=== PATIENT | female | born 1940 | race Caucasian/White ===

== ENCOUNTER → 2017-02-18 | Outpatient (CLI) | payer OTHER ==
--- NOTE | 2017-02-18 14:55 | DIAGNOSTIC IMAGING REPORT ---
CT OF THE CHEST WITHOUT IV CONTRAST CLINICAL HISTORY: Pulmonary nodules. Abnormal CT scan. COMPARISON STUDY: Chest CT February 18, 2016 and December 24, 2016. CT DOSE: 301.51 mGycm TECHNIQUE: Axial images of the chest were obtained without IV contrast. Images were reviewed in the axial, sagittal, and coronal planes. IV contrast was not administered for this examination. FINDINGS: No enlarged axillary, mediastinal or hilar lymph nodes are present. The size of the heart is normal. There is moderate coronary artery calcification. Central airways are patent. There is mild to moderate emphysema. There is no consolidation to suggest pneumonia. A 6 mm left lower lobe nodule shown on image 185 of [address] of February 18, 2016. A 5 mm subpleural linear nodule within the left lower lobe shown on image 190 is also unchanged. A few tiny left upper lobe nodules are unchanged. A 5 mm right lower lobe perifissural nodule shown image 118 is unchanged. There are no new nodules. There is no pneumothorax or pleural effusion. Bony thorax is unremarkable. The left kidney is not visualized. IMPRESSION: 1. No change in several pulmonary nodules since exam of February 18, 2016. These are likely benign. A follow-up chest CT in 6 months is recommended to ensure stability. 2. Mild to moderate emphysema. 3. No thoracic lymphadenopathy. Electronically signed by: Sudhir Wang M.D. 02/18/2017 2:53 PM Dictated Date/Time: 02/18/2017 11:52 AM
== END | disposition home or self-care (01) ==
LOC: C.CTS 10:27
PROVIDERS: ATTEND Internal Medicine Critical Care Medicine
DX: R91.8 Other nonspecific abnormal finding of lung field (principal)

== ENCOUNTER → 2017-02-24 | Outpatient (CLI) | payer OTHER ==
--- NOTE | 2017-02-25 06:06 | PAP/PSG TECHNICIAN REPORT ---
[facility] Slip Presser Polysomnogram Report Study name: None Report date: 02/25/2017 Study date: 02/24/2017 Referring Physician: María Elena Crandall PA-C, PA-C Name: ISHMAEL PAULSON Interpreting Physician: Leandro Dillon M.D. Date of : 1940 Slip Presser: SWAPNA Salas. Sex: Female Age: 77 StudyType: PSG PAP Weight: 151 lbs Height: 77 years, Height 5' 0" BMI: 29.49 Medications: Incruse Ellipta 62.5mcg/inh, Albuterol, Aricept 10mg, Benicar HCT 20-12.5mg, Breo Elliipta 200-25 mcg/inh, Celexa 20mg, Colace 100mg, Macrobid 100mg, Metamucil, ProAir HFA 108mcg/act Patient History Study started on room air with 4cwp cpap in room #7. 77 yr old female here tonight for a new titration study. She had a HST that had a MONROE of 36.3. Her granddaughter dropped her off at the sleep lab and told me that she has dementia. Her ESS= 11/24. Parameters Monitored NPSG: E1-M2, E2-M1, Fp1-M2, Fp2-M1, F3-M2, F4-M2, F4-M1, C3-M2, C4-M2, C4-M1, O1-M2, O2-M2, O2-M1, T3-M2, T4-M1, P3-M2, P4-M1, CHIN1, CHIN2, HR, EKG, Legs, PFLOW, SNOR, FLOW, CFLOW, Tidal Volume, THOR, ABDO, SpO2, PLTH, CPRESS, ETCO2 Wave, ETCO2, pH Sleep Architecture Sleep Stages Time at Lights Off 9:51:50 PM STAGES Time (min.) TST (%) Time at Lights On 5:48:50 AM Wake 354.0 -- Total Recording Time (TRT) 477.00 min. N1 20.0 16 Total Sleep Period (TSP) 341.0 min. N2 67.0 54 Total Sleep Time (TST) 123.0min. N3 27.5 22 Awake Time 354.0 min. REM 8.5 7 Wake after Sleep Onset 218.0 min. Sleep Efficiency (SE) 26 % Sleep Onset Latency (RENA) 136.0 min. Number of Stage 1 Shifts None Awakenings 14 Stage Changes 48 Number of REM periods 1 REM 8.5 7 REM Latency 257.5 min. NREM 114.5 93 Body Position Analysis Supine Right Left Side Prone Vertical Total Sleep Time (min.) 2.2 56.5 66.5 123.00 0.0 0.0 Total Sleep Time (%) 0% 46% 54% 100 0% N/A% Total Sleep Time REM (min.) 0.0 0.0 8.5 None 0.0 0.0 Total Sleep Time NREM (min.) 0.0 56.5 58.0 None 0.0 0.0 Intermittent Wake (min.) 2.2 116.9 234.9 None 0.0 0.0 Total Sleep Period (%) 0% None None None None None Arousals Myoclonus (PLM) * Events Count Index Events Count Index Spontaneous 4 2 Events Awake (PLMW) 521 88.3 Respiratory 4 2.9 Events Asleep w/ Arousal (PLMA) 4 2.0 PLM 4 2 Events Asleep w/o Arousal (PLMS) 25 12.2 Snoring 2 1 Total Asleep 29 14.1 Total 14 7 Total 550 69 Respiratory Analysis * CA OA MA CH H RERA Total Count 0 12 0 0 1 0 13 Index 0.0 5.9 0.0 0 0.5 0 6.3 Mean Duration 0.0 15.8 0.0 0.00 23.9 0.0 16.4 Longest Duration 0.0 22.5 0.0 0.00 0.0 0.0 23.9 Respiratory Event Summary Total Supine ~Supine Right Left Prone REM NREM Apneas Count 12 N/A 12 1 11 N/A 0 12 Index 5.9 N/A 6 1.1 9.9 N/A 0 6 Hypopneas (4% Desat) Count 1 N/A 1 0 1 N/A 0 1 Index 0.5 N/A 0 0.0 0.9 N/A 0.0 0.5 Apneas & All Hypopneas Count 13 N/A 13 1 12 N/A 0 13 Index 6.3 N/A 6 1 11 N/A 0.0 6.8 Respiratory Events (Moisture Meter Reader+All Hyp+RERA) Count 13 N/A 13 1 12 N/A 0 13 Index 6.3 N/A 6 1.1 10.8 N/A 0.0 6.8 Respiratory Related Arousal Count 4 N/A 6 0 6 N/A 0 6 Index 2.9 N/A 3 0 5 N/A 0 3 Snoring Analysis Supine Right Left Prone REM NREM Total Snore duration 1.4 min Snores count N/A 11 38 N/A 1 48 49 Snore mean duration 1.7 Sec Snores index N/A 12 34 N/A 7.1 25.2 23.9 TST with snoring (%) 1.1% Desaturation Event Summary: Minimum %SpO2 Event Count Mean/Min/Max Duration(sec.) Desaturation Index % Time In Bed > 90 32 30.9 / 11.5 / 54.5 5.7 74.4 86 - 90 3 12.0 / 4.8 / 25.0 1.6 25.4 81 - 85 0 N/A 0.0 0.1 76 - 80 0 N/A 0.0 0.0 71 - 75 1 12.3 / 12.3 / 12.3 293.9 0.0 66 - 70 0 N/A 0.0 0.0 61 - 65 0 N/A 0.0 0.0 56 - 60 0 N/A 0.0 0.0 51 - 55 0 N/A 0.0 0.0 < 50 0 N/A 0.0 0.0 Total REM NREM Awake <50% 0.0 min. 0.0 min. 0.0 min. 0.0 min. 51 - 60% 0.0 min. 0.0 min. 0.0 min. 0.0 min. 61 - 70% 0.0 min. 0.0 min. 0.0 min. 0.0 min. 71 - 80% 0.2 min. 0.0 min. 0.0 min. 0.2 min. 81 - 90% 115.1 min. 0.0 min. 18.7 min. 96.4 min. 91 - 100% 335.9 min. 8.5 min. 95.6 min. 231.8 min. Average 92 94 92 91 Minimum SpO2 72 91 89 72 Desaturation Event Index 4.4 14.1 0.5 5.6 # Desat. Events below 89% 6 N/A N/A 6 Time(%) with Saturation below 89% 1.0 0.0 0.0 1.0 Time(min.) with Saturation below 89% 4.6 0.0 0.0 4.6 Time (mins) REM (mins) NREM (mins) % of TST SpO2 Below 90% N/A N/A NN/A 1.2 SpO2 Below 88% 0 0 0 0 Heart Rate Analysis Min (bpm) Max (bpm) Average (bpm) Awake 54 127 68 NREM 54 87 60 REM 55 66 60 Overall 54 87 60 Supplemental O2 Values Minimum O2 level: None Value Start Time End Time Slip Presser Comments Mrs. Paulson slept in the right and left positions. Cardiac arrhythmia noted, see print out. Some leg movements noted. No bruxism noted. CPAP was initiated at +4 CMH2O and up-titrated to a level of +8 CMH2O. As soon as she would fall asleep she would have one apnea after another. A small Simplus full face mask by Onel and a medium Quattro Air full face mask by [employer] were used during titration. In the very short time that she did sleep she awoke once to use the restroom and to get a drink. She stated that she slept worse than when at home because of all the wires. She said she did not mind the mask but did not really like wearing it. The final report will be interpreted and signed by a sleep physician. The completed physician report will then be placed in the patient medical record. Therapy Event: Therapy (cm H20) 4 6 8 Total Time at Pressure (min.) 140.5 7.8 328.7 TST at Pressure (min.) 3.0 6.8 113.2 # Periods 1 1 1 Sleep Onset (min.) 136.0 0.0 0.0 REM Onset (min.) N/A N/A 245.2 Sleep Efficiency % 2 86 34 Wakefulness (%) 97.9 13.3 65.6 Wakefulness (min.) 137.5 1.0 215.5 NREM 1 (%) 2.1 32.0 4.4 NREM 1 (min.) 3.0 2.5 14.5 NREM 2 (%) 0.0 54.7 19.1 NREM 2 (min.) 0.0 4.3 62.7 NREM 3 (%) 0.0 0.0 8.4 NREM 3 (min.) 0.0 0.0 27.5 REM (%) 0.0 0.0 2.6 REM (min.) 0.0 0.0 8.5 # Arousals 3 1 10 Arousal Index 60.0 8.9 5.3 # Snore 1 13 35 Snore Index 20.0 115.2 18.5 AHI 80.0 44.3 2.1 AHI Supine N/A N/A N/A AHI Non-Supine 80.0 44.3 2.1 NREM AHI 80.0 44.3 2.3 REM AHI N/A N/A 0.0 RDI 80.0 44.3 2.1 # Obstructive 4 5 3 # Central Ap 0 0 0 # Mixed 0 0 0 # Hypopneas 0 0 1 RERAS 0 0 0 Total Respiratory Events 4 5 4 Time Below SpO2 89.00% (min.) 0.0 0.0 0.0 Mean NREM SpO2 (%) 92 93 92 Mean REM SpO2 (%) N/A N/A 94 Mean Sleep SpO2 (%) 92 93 92 Min NREM SpO2 (%) 90 91 89 Min REM SpO2 (%) N/A N/A 91 Position Supine (min.) 0.0 0.0 0.0 Position Non-supine (min.) 3.0 6.8 113.2 LM Index Sleep 40.0 17.7 13.2 LM Index NREM 40.0 17.7 10.3 LM Index REM N/A N/A 49.4 Mean Heart Rate (bpm) 60 60 60 Min Heart Rate (bpm) 58 57 54
--- NOTE | 2017-02-26 18:13 | POLYSOMNOGRAPH REPORT ---
CLINICAL DATA: A 77-year-old female with a BMI of 29.5 referred by María Elena Crandall and Dr. Pretty and her PCP, Dr. Nia Whitmore for a CPAP titration study. The patient does have COPD. She was found to have severe sleep apnea on a home sleep study with an MONROE of 36.3. SLEEP ARCHITECTURE: Total sleep period was 341 minutes. Total sleep time was 123 minutes divided between 114.5 minutes of non-REM sleep and 8.5 minutes of REM sleep. Sleep onset latency was delayed at 136 minutes. REM latency was severely delayed at 257.5 minutes. Sleep efficiency was severely reduced to 26%. Wake after sleep onset was 218 minutes. Sleep consisted of stage N1 16%, N2 54%, N3 22%, and REM 7%. AROUSAL DATA: Fourteen arousals recorded for an index of 7 per hour. PERIODIC LIMB MOVEMENTS DATA: Twenty nine limb movements during sleep were noted for an index of 14.1 per hour with arousal index of 2 per hour. RESPIRATORY DATA: The AHI was 6.3. There were 12 obstructive apneic episodes, the longest duration of which was 22.5 seconds. There was 1 hypopneic episode, 23.9 seconds in duration. OXIMETRY DATA: No hypoxemia was seen. Oxygen jesus was 89%. Mean saturation was 92%. ELECTROCARDIOGRAM: Heart rates ranged from 54-127 beats per minute. [employer]OR'S COMMENTS AND TREATMENT SUMMARY: The patient was started on CPAP using a small Simplus full face mask by Onel and then a medium Quattro full facemask by [employer]. She had several very short sleep periods during the night. During her time asleep on CPAP, she did have control of her sleep apnea with CPAP 8 cm of water pressure. At that level, she slept for 113 minutes with an AHI of 2. IMPRESSION: Severe sleep apnea/hypopnea corrected with CPAP 8 cm of water pressure using a medium Quattro full facemask by [employer]. RECOMMENDATIONS: The patient could be started on the above noted treatment regimen and seen back in followup within 90 days to document efficacy and compliance. [facility]
== END | disposition home or self-care (01) ==
LOC: C.NEUR 21:00
PROVIDERS: ATTEND Physician Assistant
DX: G47.33 Obstructive sleep apnea (adult) (pediatric) (principal)

== ENCOUNTER → 2017-06-12 | Outpatient (CLI) | payer OTHER ==
--- NOTE | 2017-06-12 11:45 | DIAGNOSTIC IMAGING REPORT ---
CHEST 2 VIEWS ROUTINE CLINICAL HISTORY: J44.9 Chronic obstructive pulmonary [id number] COMPARISON STUDY: CT 02/18/2017 FINDINGS: Suggestion of a potential possible progressive pleural-based density left base laterally. Remainder the study remain generally stable including left basilar nodularity. No evidence for cardiac enlargement. No hilar enlargement. IMPRESSION: Potential progression and/or development of pleural-based density left base laterally. CT of chest is again recommended. The above report was generated using voice recognition software. It may contain grammatical, syntax or spelling errors. Electronically signed by: Brock Puentes M.D. 06/12/2017 11:44 AM Dictated Date/Time: 06/12/2017 11:41 AM
== END | disposition home or self-care (01) ==
LOC: C.RAD1850 11:01
PROVIDERS: ATTEND Physician Assistant
DX: J44.9 Chronic obstructive pulmonary disease, unspecified (principal); J98.4 Other disorders of lung

== ENCOUNTER → 2017-06-18 | Outpatient (CLI) | payer OTHER ==
--- NOTE | 2017-06-18 11:09 | DIAGNOSTIC IMAGING REPORT ---
CHEST-PA,LAT AND OBLIQUE VIEWS HISTORY: Abnormal chest x-ray. Follow-up. COMPARISON: Chest 06/12/2017. Chest CT 02/18/2017. FINDINGS: Lobular density seen within the lateral aspect of the left lung base is again noted. However, this demonstrates increased density and corresponds to the healing left anterolateral rib fractures seen on the prior chest CT. No pulmonary nodules identified by conventional radiographic technique. The heart is normal in size. No pleural effusions. No pneumothorax. Mild chronic interstitial thickening remains unchanged. IMPRESSION: Left basilar lobular density corresponds to the healing rib fractures seen on the prior CT examination. Electronically signed by: Deon Mckay M.D. 06/18/2017 11:08 AM Dictated Date/Time: 06/18/2017 11:05 AM
== END | disposition home or self-care (01) ==
LOC: C.RAD 10:19
PROVIDERS: ATTEND Physician Assistant
DX: R93.8 Abnormal findings on diagnostic imaging of other specified body structures (principal)

== ENCOUNTER → 2017-09-01 | Outpatient (CLI) | payer OTHER ==
--- NOTE | 2017-09-01 12:57 | DIAGNOSTIC IMAGING REPORT ---
(CHEST) THORAX WITHOUT CLINICAL HISTORY: PULMONARY NODULES COMPARISON STUDY: 02/18/2017 CT DOSE: 336.96 mGy.cm TECHNIQUE: CT of the thorax was performed from the thoracic inlet to the lung bases. Images are reviewed in the axial, sagittal, and coronal planes. IV contrast was not administered for this examination. A dose lowering technique was utilized adhering to the principles of ALARA. FINDINGS: Thyroid: Imaged portions of the thyroid gland are normal in appearance. Thoracic aorta: The thoracic aorta is normal in course and caliber, noting standard 3 vessel arch anatomy. Heart: The heart is normal in size and configuration, without pericardial effusion. Lungs and pleural spaces: No pleural effusions are visualized. There is pulmonary emphysema. There is a stable 5 mm right lower lobe perifissural nodule as visualized in image #110/276. There is a stable partially calcified 6 mm left lower lobe pulmonary nodule as visualized in image #171/276. There is stable 4 mm pleural-based left lower lobe pulmonary nodule as visualized in image #181/276. Punctate left upper lobe pulmonary nodules also remain stable. Mediastinum: There is no mediastinal lymphadenopathy. Mariana: Clear. Axilla: Clear. Upper abdomen: There is a large hiatal hernia. There is a stable 6 mm hypodensity within the right hepatic lobe. Skeletal structures: There are no lytic or blastic osseous lesions. IMPRESSION: 1. Emphysema 2. No evidence of pathologic adenopathy 3. Stable low suspicion bilateral subcentimeter pulmonary nodules 4. Moderate hiatal hernia Electronically signed by: Fernando Castaneda M.D. 09/01/2017 12:56 PM Dictated Date/Time: 09/01/2017 12:50 PM
== END | disposition home or self-care (01) ==
LOC: C.CTS 12:35
PROVIDERS: ATTEND Physician Assistant
DX: R91.8 Other nonspecific abnormal finding of lung field (principal); J43.9 Emphysema, unspecified; K44.9 Diaphragmatic hernia without obstruction or gangrene